=== PATIENT | male | born 1965 | race African-American/Black ===

== ENCOUNTER 2016-09-13 05:15 | Emergency (ER) | payer MEDICAID ==
[~2016-09-13] VITALS: Ht 195.6 cm; Wt 185.5 kg
[2016-09-13 05:35] VITALS: BP 112/76
--- NOTE | 2016-09-13 05:49 | Emergency Room Report ---
History of Present Illness General Chief Complaint: General Complaint Source: Patient Present Illness HPI This is a 51-year-old male with no cerebral past medical history other than obesity. He presents with chief complaint of scrotal/swelling. Onset for last couple days. He is visiting from [place]. He said he was at at a water park and was going down the water slide. He said that the water hit his pannus and lifted up. He had some pain to the scrotal area. It was mild tenderness. He continue on his trip here. As he was getting out of the car last night he fell severe pain and now scrotal very swollen. No fever or chills but no nausea no vomiting. Pain is 8/10. No other trauma. No urinary complaint. Allergies: Coded Allergies: No Known Allergies (Unverified , 09/13/16) Patient History Past Medical History: see triage record, old chart reviewed Past Surgical History: other Pertinent Family History: none Social History: Denies: smoking Immunizations: other Reviewed Nursing Documentation: PMH: Agreed, PSxH: Agreed Nursing Documentation-PMH Hx Cardiac Problems: Yes - HEART DEFIBRILATOR, AFIB Hx Hypertension: No Review of Systems Eye: Denies: blurred vision, eye pain ENT: Denies: ear pain, nose congestion, throat swelling Respiratory: Denies: cough, shortness of breath Cardiovascular: Denies: chest pain, palpitations Gastrointestinal: Denies: abdominal pain, diarrhea, nausea, vomiting Musculoskeletal: Denies: back pain, joint pain Skin: Denies: rash Neurological: Denies: headache, numbness Endocrine: Denies: increased thirst, increased urine Hematologic/Lymphatic: Denies: easy bruising All Other Systems: negative except mentioned in HPI Physical Exam Vital Signs Date Time Temp Pulse Resp B/P Pulse Ox O2 Delivery O2 Flow Rate FiO2 09/13/16 05:23 98.4 87 18 112/76 94 Room Air vitals normal Sp02 EP Interpretation: reviewed, normal General Appearance: well appearing, no apparent distress, alert, obese Head: normocephalic, atraumatic Eyes: bilateral eye EOMI, bilateral eye PERRL ENT: hearing grossly normal, normal pharynx Neck: full range of motion, supple, no meningismus Respiratory: chest non-tender, lungs clear, normal breath sounds Cardiovascular #1: regular rate, rhythm, no murmur Gastrointestinal: normal bowel sounds, non tender, no mass, no organomegaly, no bruit, non-distended, other - Very large pannus Genitourinary: other - Diffuse scrotal edema. No obvious mass. Mild tenderness. Penis is retracted. Musculoskeletal: back normal, gait/station normal, normal range of motion Psychiatric: mood/affect normal Skin: warm/dry Medical Decision Making Diagnostic Impression: Primary Impression: Scrotal hematoma ER Course Patient presents with scrotal hematoma and edema. No internal injury. No testicular injury. He showed me the video of his waterslide. It was an outdoor slide where he slid down a very large ramp and was airborne to 15 feet. He landed onto a bain. He said initially the suprapubic area showed a hematoma. It was getting better until today when it "popped" and track down to the scrotal area. No internal injury. We'll discharge home. CT/MRI/US Diagnostic Results CT/MRI/US Diagnostic Results : Imaging Test Ordered: Testicular ultrasound Impression scrotal edema. No testicular injury. Read by sampler tester. Last Vital Signs Date Time Temp Pulse Resp B/P Pulse Ox O2 Delivery O2 Flow Rate FiO2 09/13/16 05:35 98.4 87 18 112/76 94 Room Air Status: improved Disposition: HOME, SELF-CARE Condition: Stable Scripts Hydrocodone/Acetaminophen 5-325* (HYDROCODONE/ACETAMINOPHEN 5-325*) 1 Each Tablet 1 TAB ORAL Q6H Y for For Pain, #20 TAB 0 Refills Prov: REX GRESHMA M.D. 09/13/16 Ibuprofen* (MOTRIN*) 600 Mg Tablet 600 MG ORAL THREE TIMES A DAY, #30 TAB 0 Refills Prov: REX GRESHAM M.D. 09/13/16 Additional Instructions: Followup with your DrJohanna in 7 days. Return if symptom worsen. You may need a referral to see a urologist. REX GRESHAM M.D. Sep 13, 2016 05:49
[2016-09-13 05:58] LABS: APPEARANCE,URINE CLEAR; KETONES,URINE NEGATIVE (NEGATIVE); LEUKOCYTE ESTERASE ,URINE 1+ (NEGATIVE); NITRITE,URINE NEGATIVE (NEGATIVE); PH,URINE 6 (4.5-8.0); PROTEIN,URINE 1+ (NEGATIVE); UROBILINOGEN,URINE 12 MG/DL (0.0-1.0)
[2016-09-13 06:07] LABS: BACTERIA,URINE FEW /HPF; MUCUS,URINE FEW /LPF (NONE/OCC); RBC,URINE 0-2 /HPF (0 - 0); SQUAMOUS EPITHELIAL CELL,UR FEW /LPF (NONE/OCC)
[2016-09-13] MEDS ORDERED: HYDROCODON-ACE1 EA15 ORAL (06:52)
[2016-09-13] MEDS ORDERED: IBUPROFEN600 MG ORAL (06:52)
[2016-09-13 07:00] VITALS: BP 112/76
--- NOTE | 2016-09-13 11:04 | Diagnostic Imaging Report ---
Indications: PAIN and swelling Technique: Grayscale and duplex images of the scrotum Comparison:None Findings: Exam is somewhat limited due to patient body habitus The right testicle measures 5cm in length. It demonstrates normal echogenicity. Normal Doppler flow. Normal epididymis. The left testicle measures 4.5 cm in length. It demonstrates normal echogenicity and normal Doppler flow. Normal epididymis. The left hemiscrotum is edematous. There is a mixed echogenicity are seen outside the left testicle, could represent area of hematoma. However, this area is poorly visualized Impression: Limited exam, due to patient body habitus Left scrotal swelling and heterogeneous echogenicity. It represent edema, hematoma, or contusion Normal testicles. No evidence of significant testicular trauma or torsion
== END 2016-09-13 07:00 | disposition home or self-care (01) ==
LOC: EMR 05:25
DX: S30.22XA Contusion of scrotum and testes, initial encounter (principal); X58.XXXA Exposure to other specified factors, initial encounter; Y93.9 Activity, unspecified; Y92.9 Unspecified place or not applicable; E66.9 Obesity, unspecified; Z68.42 Body mass index [BMI] 45.0-49.9, adult
CPT/HCPCS: 76870; 80300; 81003; 99284